=== PATIENT | female | born 1990 | race Caucasian/White ===

== ENCOUNTER → 2017-07-15 | Outpatient (REF) | payer OTHER | LOC: M SFHCLERA 13:56 | DX: R30.0 Dysuria (principal) ==

== ENCOUNTER → 2018-08-18 | Outpatient (CLI) | payer OTHER ==
--- NOTE | 2018-08-18 14:52 | REP ---
BILATERAL MAMMOGRAM WITH DIAGNOSTIC MAMMOGRAM RIGHT BREAST AND RIGHT BREAST ULTRASOUND: Bilateral mammography performed in the MLO and mL projections. Patient complains of pain in the upper outer quadrant with a palpable lump. The area is marked on the skin with a triangular marker. Additional spot compression views of the right breast are performed. There are no prior studies for comparison. Family history of breast cancer paternal aunt with Tyrer-Cuzick lifetime risk of breast cancer 14.6%. Moderate heterogeneous fibroglandular tissue is seen bilaterally. There is no definite mass or architectural distortion. No clustered microcalcifications are seen. Real-time sonographic evaluation of the upper outer quadrant, right breast performed. There is dense breast parenchyma. No cystic or solid nodule is seen. IMPRESSION: BIRADS 2: BI-RADS/ACR category 2 mammogram. Benign Findings. ACR 2 benign. Heterogeneously dense breast parenchyma limits the sensitivity of mammogram. No mass or clustered microcalcifications are seen. There is no mammographic or sonographic evidence of a mass in the region of pain and palpable abnormality upper outer quadrant right breast. Negative mammogram and ultrasound should not deter biopsy if there is a clinically suspicious palpable mass present. Clinical correlation and followup recommended. Recommend followup mammogram at age 40, or prior to that time if clinically necessary. This mammogram was interpreted with the aid of an FDA-approved computer-aided detection system. A. Negative x-ray reports should not delay biopsy if a dominant or clinically suspicious mass is present. B. Four to eight percent of cancers are not identified by x-ray. C. Adenosis and dense breasts may obscure an underlying neoplasm. The patient states she/he had a clinical breast exam in July 2018. The patient letter being requested is M2. Electronically Signed by Mauricio Cancino MD 08/19/2018 11:01 A
== END ==
LOC: M RAD 09:25
PROVIDERS: ATTEND Family Medicine
DX: N64.4 Mastodynia (principal); Z80.3 Family history of malignant neoplasm of breast; N60.21 Fibroadenosis of right breast; N60.22 Fibroadenosis of left breast

== ENCOUNTER → 2018-10-02 | Outpatient (REF) | payer OTHER | LOC: M SFHCLERA 12:39 | PROVIDERS: ATTEND Physician Assistant | DX: R50.9 Fever, unspecified (principal) ==